=== PATIENT | male | born 1965 | race Hispanic/Latino ===

== ENCOUNTER 2018-06-24 20:01 | Emergency (ER) | payer OTHER ==
[2018-06-24] MEDS ORDERED: ACETAMINOPHEN 500 MG TAB ONE ×2 (21:14→21:57)
--- NOTE | 2018-06-24 21:26 | RAD REPORT ---
EXAM DESCRIPTION: CT - Head Brain Wo Cont - 06/24/2018 9:15 pm CLINICAL HISTORY: Headache COMPARISON: None. TECHNIQUE: Computed axial tomography of the head was obtained. IV contrast was not requested. All CT scans are performed using dose optimization technique as appropriate and may include automated exposure control or mA/KV adjustment according to patient size. FINDINGS: An intracranial bleed is not seen . The ventricles are normal in caliber. No extra-axial fluid collection is noted. Fluid within the sinuses/ mastoids is not seen. IMPRESSION: No acute intracranial abnormality is seen. If patient's symptoms persist MRI of the bra in would be recommended.
--- NOTE | 2018-06-24 21:51 | ER ---
Nurse's Notes [facility] Name: Meng Gutierrez Age: 52 yrs Sex: Male : 1965 Arrival Date: 06/24/2018 Time: 20:03 Bed 25 Private MD: Ron Hall R Diagnosis: Headache Presentation: 06/24 20:15 Presenting complaint: Patient states: He has had a throbbing headache for the past 2 aj1 weeks. He is taking Excedrin and ibuprofen for it but after a few hours his headache comes back. Denies photosensitivity, dizziness, nausea, vomiting, or syncope. He has not seen his PHCP regarding this complaint. Transition of care: patient was not received from another setting of care. Onset of symptoms was June 2018. Risk Assessment: Do you want to hurt yourself or someone else? Patient reports no desire to harm self or others. Initial Sepsis Screen: Does the patient meet any 2 criteria? No. Patient's initial sepsis screen is negative. Does the patient have a suspected source of infection? No. Patient's initial sepsis screen is negative. Care prior to arrival: None. 20:15 Method Of Arrival: Ambulatory aj 20:15 Acuity: SHO 3 aj1 Triage Assessment: 20:18 Headache History: The patient has had previous headaches and this one is similar to aj1 previous episodes. General: Appears in no apparent distress. uncomfortable, Behavior is calm, cooperative, appropriate for age. Pain: Complains of pain in occipital area Pain currently is 10 out of 10 on a pain scale. Quality of pain is described as throbbing, Pain began 2 weeks Also complains of no other associated symptoms. Neuro: Level of Consciousness is awake, alert, obeys commands, Oriented to person, place, time, situation, Moves all extremities. Full function Gait is steady, Speech is normal, Facial symmetry appears normal, Reports headache Denies weakness blurred vision dizziness, numbness photophobia. Cardiovascular: Patient's skin is warm and dry. Respiratory: Airway is patent Respiratory effort is even, unlabored, Respiratory pattern is regular, symmetrical. Historical: - Allergies: 20:18 No Known Allergies; aj1 - Home Meds: 20:18 losartan Oral [Active]; aj1 - PMHx: 20:18 Hypertension; aj1 - Immunization history:: Flu vaccine is up to date. - Social history:: Smoking status: Patient/guardian denies using tobacco. - Ebola Screening: : Patient denies travel to an Ebola-affected area in the 21 days before illness onset. Screenin:30 Abuse screen: Denies threats or abuse. Denies injuries from another. Nutritional kr2 screening: No deficits noted. Tuberculosis screening: No symptoms or risk factors identified. Fall Risk None identified. Assessment: 20:30 General: Appears in no apparent distress. comfortable, well groomed, Behavior is calm, kr2 cooperative, appropriate for age. Pain: Complains of pain in occipital area Pain currently is 3 out of 10 on a pain scale. Quality of pain is described as squeezing, throbbing, Is intermittent, Alleviated by medications, rest. Neuro: Level of Consciousness is awake, alert, obeys commands, Oriented to person, place, time, situation, Appropriate for age Molder Punch are equal bilaterally Moves all extremities. Gait is steady, Speech is normal, Facial symmetry appears normal, Pupils are PERRLA, Intact. Cardiovascular: Capillary refill < 3 seconds in bilateral fingers Patient's skin is warm and dry. Respiratory: Airway is patent Respiratory effort is even, unlabored, Respiratory pattern is regular, symmetrical. GI: Patient currently denies nausea, vomiting. EENT: Oral mucosa is moist. Derm: Skin is intact, is healthy with good turgor, Skin is pink, warm \T\ dry. Musculoskeletal: Circulation, motion, and sensation intact. 21:30 Reassessment: Patient appears in no apparent distress at this time. Patient and/or kr2 family updated on plan of care and expected duration. Pain level reassessed. Patient is alert, oriented x 3, equal unlabored respirations, skin warm/dry/pink. 22:15 Reassessment: Patient appears in no apparent distress at this time. Patient and/or kr2 family updated on plan of care and expected duration. Pain level reassessed. Patient is alert, oriented x 3, equal unlabored respirations, skin warm/dry/pink. Patient states feeling better. Vital Signs: 20:18 BP 106 / 82; Pulse 74; Resp 16; Temp 98.3; Pulse Ox 96% on R/A; Weight 79.38 kg (R); aj1 Height 5 ft. 8 in. (172.72 cm) (R); Pain 10/10; 21:30 BP 110 / 80; Pulse 70; Resp 15; Pulse Ox 99% on R/A; kr2 20:18 Body Mass Index 26.61 (79.38 kg, 172.72 cm) aj1 ED Course: 20:03 Patient arrived in ED. do 20:03 Ron Hall MD is Private Physician. do 20:17 Triage completed. aj1 20:18 Arm band placed on Patient placed in an exam room. aj1 20:22 Julian Brody PA is PHCP. cp 20:23 Lucas Roberson MD is Attending Physician. cp 20:30 Patient has correct armband on for positive identification. Bed in low position. Call kr2 light in reach. Pulse ox on. NIBP on. Door closed. Warm blanket given. Head of bed elevated. 20:43 Machelle Mendoza, RN is Primary Nurse. kr2 21:[address] nv 21:15 CT Head Brain wo Cont In Process Unspecified. EDMS 21:50 Jamin Amado MD is Referral Physician. cp 22:27 No provider procedures requiring assistance completed. Patient did not have IV access kr2 during this emergency room visit. Administered Medications: 21:30 Drug: Tylenol 1000 mg Route: PO; kr2 22:21 Follow up: Response: No adverse reaction kr2 Outcome: 21:50 Discharge ordered by MD. cp 22:28 Discharged to home ambulatory, with family. kr2 22:28 Condition: good 22:28 Discharge instructions given to patient, family, Instructed on discharge instructions, follow up and referral plans. medication usage, Demonstrated understanding of instructions, follow-up care, medications, Prescriptions given X 2. 22:28 Patient left the ED. kr2 Signatures: Dispatcher [employer] EDMS Demi Villegas, RN RN aj1 Julian Brody PA PA Yarelis Vilchis Nathan nv Machelle Mendoza RN RN kr2
--- NOTE | 2018-06-24 21:51 | EDPHYS ---
Physician Documentation [facility] Name: Meng Gutierrez Age: 52 yrs Sex: Male : 1965 Arrival Date: 06/24/2018 Time: 20:03 Bed 25 Private MD: Ron Hall R ED Physician Lucas Roberson HPI: 06/24 21:03 This 52 yrs old Male presents to ER via Ambulatory with complaints of Runny cp Nose, Headache. 21:03 The patient complains of pain to the occipital area. cp 21:03 The patient describes the headache as aching, waxing and waning. Onset: The cp symptoms/episode began/occurred 2 week(s) ago. 21:03 Associated signs and symptoms: Pertinent positives: nasal drainage, Pertinent cp negatives: altered mental status, fever, neck stiffness, paresthesias, sinus congestion, sinus tenderness, vision changes. 21:03 Patient reports similar headaches prior to being treated for hypertension. cp Historical: - Allergies: 20:18 No Known Allergies; aj1 - Home Meds: 20:18 losartan Oral [Active]; aj1 - PMHx: 20:18 Hypertension; aj1 - Immunization history:: Flu vaccine is up to date. - Social history:: Smoking status: Patient/guardian denies using tobacco. - Ebola Screening: : Patient denies travel to an Ebola-affected area in the 21 days before illness onset. ROS: 21:10 Constitutional: Negative for body aches, chills, fever, poor PO intake. cp 21:10 Eyes: Negative for injury, pain, redness, and discharge. cp 21:10 ENT: Positive for rhinorrhea, Negative for drainage from ear(s), ear pain, sore throat, difficulty swallowing, difficulty handling secretions. 21:10 Neck: Negative for pain with movement, pain at rest, stiffness, swollen nodes, tenderness. 21:10 Cardiovascular: Negative for chest pain, edema, palpitations. 21:10 Respiratory: Negative for cough, shortness of breath, wheezing. 21:10 Abdomen/GI: Negative for abdominal pain, nausea, vomiting, and diarrhea. 21:10 Back: Negative for pain at rest, pain with movement, radiated pain. 21:10 : Negative for urinary symptoms. 21:10 Skin: Negative for cellulitis, rash. 21:10 Neuro: Positive for headache, Negative for altered mental status, gait disturbance, numbness, syncope, near syncope, weakness. 21:10 All other systems are negative. Exam: 21:15 Constitutional: The patient appears in no acute distress, alert, awake, cp non-diaphoretic, non-toxic, well developed, well nourished. 21:15 Head/Face: Normocephalic, atraumatic. Eyes: Pupils equal round and reactive to light, cp extra-ocular motions intact. Lids and lashes normal. Conjunctiva and sclera are non-icteric and not injected. Cornea within normal limits. Periorbital areas with no swelling, redness, or edema. ENT: Nares patent. No nasal discharge, no septal abnormalities noted. Tympanic membranes are normal and external auditory canals are clear. Oropharynx with no redness, swelling, or masses, exudates, or evidence of obstruction, uvula midline. Mucous membranes moist. Neck: Trachea midline, no thyromegaly or masses palpated, and no cervical lymphadenopathy. Supple, full range of motion without nuchal rigidity, or vertebral point tenderness. No Meningismus. Chest/axilla: Normal chest wall appearance and motion. Nontender with no deformity. No lesions are appreciated. Cardiovascular: Regular rate and rhythm with a normal S1 and S2. No gallops, murmurs, or rubs. Normal PMI, no JVD. No pulse deficits. Respiratory: Lungs have equal breath sounds bilaterally, clear to auscultation and percussion. No rales, rhonchi or wheezes noted. No increased work of breathing, no retractions or nasal flaring. Abdomen/GI: Soft, non-tender, with normal bowel sounds. No distension or tympany. No guarding or rebound. No evidence of tenderness throughout. Skin: Warm, dry with normal turgor. Normal color with no rashes, no lesions, and no evidence of cellulitis. Neuro: Awake and alert, GCS 15, oriented to person, place, time, and situation. Cranial nerves II-XII grossly intact. Motor strength 5/5 in all extremities. Sensory grossly intact. Cerebellar exam normal. Normal gait. Vital Signs: 20:18 BP 106 / 82; Pulse 74; Resp 16; Temp 98.3; Pulse Ox 96% on R/A; Weight 79.38 kg (R); aj1 Height 5 ft. 8 in. (172.72 cm) (R); Pain 10/10; 21:30 BP 110 / 80; Pulse 70; Resp 15; Pulse Ox 99% on R/A; kr2 20:18 Body Mass Index 26.61 (79.38 kg, 172.72 cm) aj1 MDM: 20:23 Patient medically screened. cp 21:00 Differential diagnosis: cluster headache, meningoencephalitis, migraine, neoplasm, cp subarachnoid bleed, temporal arteritis, tension headache. 21:48 Data reviewed: vital signs, nurses notes, radiologic studies, CT scan, and as a result, cp I will discharge patient. 21:48 Counseling: I had a detailed discussion with the patient and/or guardian regarding: the cp historical points, exam findings, and any diagnostic results supporting the discharge/admit diagnosis, radiology results, the need for outpatient follow up, a neurologist, to return to the emergency department if symptoms worsen or persist or if there are any questions or concerns that arise at home. 06/24 21:02 Order name: CT Head Brain wo Cont; Complete Time: 21:28 cp 06/24 21:29 Interpretation: Report reviewed. cp Administered Medications: 21:30 Drug: Tylenol 1000 mg Route: PO; kr2 22:21 Follow up: Response: No adverse reaction kr2 Disposition: 06/25 01:19 Co-signature as Attending Physician, Lucas Roberson MD. rn Disposition: 06/24/18 21:50 Discharged to Home. Impression: Headache. - Condition is Stable. - Discharge Instructions: General Headache Without Cause. - Prescriptions for Imitrex 50 mg Oral Tablet - take 1 tablet by ORAL route one time - x 1 dose with fluids as early as possible after the onset of a migraine attack; if headache returns, the dose may be repeated after 2 hours, not to exceed a total daily dose of 4 tablets;. Naprosyn 500 mg Oral Tablet - take 1 tablet by ORAL route 2 times per day take with food; 30 tablet. - Medication Reconciliation Form, Thank You Letter, Antibiotic Education, Prescription Opioid Use form. - Follow up: Jamin Amado MD; When: 2 - 3 days; Reason: Recheck today's complaints. - Problem is new. - Symptoms have improved. Signatures: Dispatcher [facility]Ho[facility] Phys[facility] Medical CenterDemi Portillo RN RN aj1 Lucas Roberson MD MD rn Page, Corey, PA PA cp Reji, Machelle, RN RN kr2 Corrections: (The following items were deleted from the chart) 06/24 22:28 21:50 06/24/2018 21:50 Discharged to Home. Impression: Headache. Condition is Stable. kr2 Forms are Medication Reconciliation Form, Thank You Letter, Antibiotic Education, Prescription Opioid Use. Follow up: Jamin Amado; When: 2 - 3 days; Reason: Recheck today's complaints. Problem is new. Symptoms have improved. cp
[2018-06-24 22:52] VITALS: TEMP 98.3
[2018-06-24 22:53] VITALS: BP 110/80; O2SAT 99
== END 2018-06-24 22:28 | disposition home or self-care (01) ==
LOC: ER 20:01
DX: R51 Headache (principal); I10 Essential (primary) hypertension
CPT/HCPCS: 70450; 99284

== ENCOUNTER 2020-05-12 06:23 | Emergency (ER) | payer OTHER, SELFPAY ==
--- OUTSIDE RECORDS SUMMARY | 2020-05-12 06:25 | XMS REPORT | Continuity of Care Document ---
:1965 Author Organization [facility] t Address [address] [place] [address] Care Team Providers Name Role Phone Unavailable Unavailable Unavailable Problems Condition Condition Condition Status Onset Resolution Last Treating Co mments Source Name Details Category Date Date Treatment Clinician Date HTN, goal HTN, goal Problem Active [facility] 140[facility] 140/[facility] Calculus Calculus Problem [facility] kidney kidney [facility] Osteoarthr Osteoarthr Diagnosis Active [facility] it[facility] of itis of [facility] - lumbar lumbar [facility] spine, spine, l unspecifie unspecifie Ou tpati d spinal d spinal ent osteoarthr osteoarthr Cl inics itis itis complicati complicati on status on status Rotator Rotator Problem Active [facility] cuff cuff [facility] - arthropath arthropath Me moria y of left y of left l shoulder shoulder Outpat i ent Clinics Arm pain, Arm pain, Diagnosis Active [facility] left left [facility] Allergies, Adverse Reactions, Alerts This patient has no known allergies or adverse reactions. Medications Ordered Filled Start Stop Current Ordering Indication Dosage Frequency Signature Comments Components Source Medication Medication Date Date Medication? Clinician (SIG) Name Name Losartan Losartan Yes Stephanie [address] Potassium Potassium [facility] Procedures This patient has no known procedures. Encounters Start End Encounter Admission Attending Care Care Encounter Source Date/Time Date/Time Type Type Clinicians Facility Department ID 2020-04-15 2020-04-15 Outpatient Jeanna Cedeno [id number] [facility] 14:30:00 14:30:00 t H3 [facility] [place] [facility] 2020-03-06 2020-03-06 Outpatient Jeanna Meekst [id number] [facility] 09:30:00 09:30:00 t Bday [facility] Medicine Outpati ent Clinics 2019-11-23 2019-11-23 [facility] [id number] [facility] 08:00:00 08:00:00 t Bday [facility] Outpati ent Clinics 2019-07-16 2019-07-16 [facility] [id number] [facility] 15:45:00 15:45:00 t Bday [facility] Outpat[facility] ent Clinics 2019-04-12 2019-04-12 [facility] [id number] [facility] 09:45:00 09:45:00 t Bday [facility] Outpati ent Clinics 2018-11-30 2018-11-30 [facility] [id number] [facility] 08:[facility] 08:[facility]:[address] [facility] Outpati ent Clinics Results This patient has no known results.
--- OUTSIDE RECORDS SUMMARY | 2020-05-12 06:26 | XMS REPORT ---
:1965 Author Organization [employer] Care Team Providers Name Role Phone Stephanie Gomez Provider Role Unavailable Allergies, Adverse Reactions, Alerts Substance Reaction Event Type N.K.D.A. Info Not Available Non Drug Allergy Problems Problem Type Condition Code Onset Dates Condition Statu s Assessment Rotator cuff arthropathy of left M12.812 Active shoulder Assessment Calculus of right kidney N20.0 Act kathleen Assessment Arm pain, left M79.602 Active Problem Calculus of right kidney N20.0 Act kathleen Problem Osteoarthritis of lumbar spine, M47.816 Active unspecified spinal osteoarthritis complication status Problem Rotator cuff arthropathy of left M12.812 Active shoulder Assessment HTN, goal below 140/90 I10 Activ e Assessment Osteoarthritis of lumbar spine, M47.816 Active unspecified spinal osteoarthritis complication status Problem HTN, goal below 140/90 I10 Activ e Medications Medication Code Code Instructions Start End Date Status Dosage System Date Losartan FORMERLY NAMED [facility] [id number] 100 MG Orally Active 1 tab let Potassium Once a day Results No Known Results Summary Purpose [employer] Submission
[2020-05-12] MEDS ORDERED: KETOROLAC 30 MG/ML INJ ONE (07:07)
--- NOTE | 2020-05-12 07:59 | ER ---
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 Coronavirus screen: Client denies travel out of the [place] in the last 14 days. At this time, the client does not indicate any symptoms associated with coronavirus-19. Initial Sepsis Screen: Does the patient meet any 2 criteria? No. Patient's initial sepsis screen is negative. Does the patient have a suspected source of infection? No. Patient's initial sepsis screen is negative. Risk Assessment: Do you want to hurt yourself or someone else? Patient reports no desire to harm self or others. Onset of symptoms was May 12, 2020. 06:41 Method Of Arrival: Ambulatory lp1 06:41 Acuity: SHO 4 lp1 06:43 Ebola Screen: No symptoms or risks identified at this time. lp1 Triage Assessment: 08:27 General: Appears in no apparent distress. Behavior is calm, cooperative, appropriate jr10 for age. Historical: - Allergies: 06:43 No Known Allergies; lp1 - Home Meds: 06:43 losartan Oral [Active]; lp1 - PMHx: 06:43 Hypertension; lp1 - PSHx: 06:43 None; lp1 - Immunization history:: Adult Immunizations up to date. - Social history:: Smoking status: Patient denies any tobacco usage or history of. Screenin:43 Abuse screen: Denies threats or abuse. Denies injuries from another. Nutritional lp1 screening: No deficits noted. Tuberculosis screening: No symptoms or risk factors identified. Fall Risk None identified. Assessment: 08:25 Pain: Complains of pain in anterior aspect of left shoulder and posterior aspect of jr10 left shoulder Quality of pain is described as aching, Pain began 3 months ago Is intermittent. Neuro: No deficits noted. Cardiovascular: Denies chest pain. Respiratory: No deficits noted. Airway is patent Respiratory effort is even, unlabored, Respiratory pattern is regular, symmetrical. Derm: No deficits noted. No signs and/or symptoms reported regarding the dermatologic system. Musculoskeletal: Circulation, motion, and sensation intact. Capillary refill < 3 seconds, Range of motion: limited in left shoulder Reports pain in left shoulder x3 months. Vital Signs: 06:43 BP 122 / 83; Pulse 73; Resp 18; Temp 97.9(O); Pulse Ox 97% on R/A; Weight 79.38 kg (R); lp1 Height 5 ft. 8 in. (172.72 cm); Pain 01; 08:22 BP 104 / 81; Pulse 73; Resp 18; Pulse Ox 96% on R/A; jr10 06:43 Body Mass Index 26.61 (79.38 kg, 172.72 cm) lp1 ED Course: 06:29 Patient arrived in ED. am2 06:30 Camden Barajas DO is Private Physician. am2 06:43 Triage completed. lp1 06:43 Arm band placed on right wrist. lp1 06:49 Sid[facility] Rizvi FNP-C [facility]. snw 06:49 Isra Rodriguez MD is Attending Physician. snw 06:54 Gin Rosenthal, VICENTE is Primary Nurse. mt2 06:58 Patient has correct armband on for positive identification. Bed in low position. Call mh5 light in reach. Side rails up X 1. Pulse ox on. NIBP on. 07:11 EKG done, by ED staff, reviewed by Sidra FUNES. sv 07:15 Awaiting for x-ray. sv 07:15 Primary Nurse role handed off by Gin Rosenthal, VICENTE sv 07:15 Rashmi Tan, VICENTE is Primary Nurse. sv 07:45 Shoulder Left (2 View) XRAY In Process Unspecified. EDMS 08:21 Sling applied to left arm. jr10 08:27 No provider procedures requiring assistance completed. Patient did not have IV access jr10 during this emergency room visit. Administered Medications: 06:59 Drug: TORadol 60 mg Route: IM; Site: right deltoid; mt2 08:09 Follow up: Response: No adverse reaction; Pain is decreased jr10 Outcome: 07:59 Discharge ordered by . snw 08:27 Discharged to home ambulatory. jr10 08:27 Condition: good 08:27 Discharge instructions given to patient, Instructed on discharge instructions, follow up and referral plans. Demonstrated understanding of instructions, follow-up care, medications, Prescriptions given X 2. 08:27 Patient left the ED. jr10 Signatures: Dispatcher [employer] EDMS Rashmi Tan, VICENTE RN sv Sidra Rizvi, CIVIL PREPAREDNESS COORDINATOR-C CIVIL PREPAREDNESS COORDINATOR-Csnw Earline Aranda RN RN [address] [facility] Nadia Morales Marlene, RN RN mt2 Lizeth Dent RN RN jr10
--- NOTE | 2020-05-12 07:59 | EDPHYS ---
Physician Documentation [facility] Name: Meng Gutierrez Age: 54 yrs Sex: Male : 1965 Arrival Date: 05/12/2020 Time: 06:29 Bed 8 Private MD: Himanshu Barajash ED Physician Isra Rodriguez HPI: 05/12 07:03 This 54 yrs old Male presents to ER via Ambulatory with complaints of Shoulder snw Pain. 07:03 The patient or guardian complains of decreased range of motion, pain, that is acute. snw left shoulder and left trapezius. Onset: The symptoms/episode began/occurred gradually, 3 month(s) ago, and became worse 1 week(s) ago, post doing some exercise. Modifying factors: The symptoms are aggravated by lifting weight, movement, rotation of arm. Associated signs and symptoms: Pertinent negatives: pt unable to sleep secondary to throbbing pain to left shoulder, denies chest pain. Severity of symptoms: At their worst the symptoms were moderate, severe. It is unknown whether or not the patient has had similar symptoms in the past. The patient has not recently seen a physician. Historical: - Allergies: 06:43 No Known Allergies; lp1 - Home Meds: 06:43 losartan Oral [Active]; lp1 - PMHx: 06:43 Hypertension; lp1 - PSHx: 06:43 None; lp1 - Immunization history:: Adult Immunizations up to date. - Social history:: Smoking status: Patient denies any tobacco usage or history of. ROS: 07:02 Constitutional: Negative for fever, chills, and weight loss, Eyes: Negative for injury, snw pain, redness, and discharge, ENT: Negative for injury, pain, and discharge, Neck: Negative for injury, pain, and swelling, Cardiovascular: Negative for chest pain, palpitations, and edema, Respiratory: Negative for shortness of breath, cough, wheezing, and pleuritic chest pain, Abdomen/GI: Negative for abdominal pain, nausea, vomiting, diarrhea, and constipation, Back: Negative for injury and pain, : Negative for injury, bleeding, discharge, and swelling, Skin: Negative for injury, rash, and discoloration, Neuro: Negative for headache, weakness, numbness, tingling, and seizure, Psych: Negative for depression, anxiety, suicide ideation, homicidal ideation, and hallucinations. 07:02 MS/extremity: Positive for decreased range of motion, pain, tenderness, of the anterior aspect of left shoulder. Exam: 07:01 Constitutional: This is a well developed, well nourished patient who is awake, alert, snw and in no acute distress. Head/Face: Normocephalic, atraumatic. Eyes: Pupils equal round and reactive to light, extra-ocular motions intact. Lids and lashes normal. Conjunctiva and sclera are non-icteric and not injected. Cornea within normal limits. Periorbital areas with no swelling, redness, or edema. ENT: Nares patent. No nasal discharge, no septal abnormalities noted. Tympanic membranes are normal and external auditory canals are clear. Oropharynx with no redness, swelling, or masses, exudates, or evidence of obstruction, uvula midline. Mucous membranes moist. Neck: Trachea midline, no thyromegaly or masses palpated, and no cervical lymphadenopathy. Supple, full range of motion without nuchal rigidity, or vertebral point tenderness. No Meningismus. Chest/axilla: Normal chest wall appearance and motion. Nontender with no deformity. No lesions are appreciated. Cardiovascular: Regular rate and rhythm with a normal S1 and S2. No gallops, murmurs, or rubs. Normal PMI, no JVD. No pulse deficits. Respiratory: Lungs have equal breath sounds bilaterally, clear to auscultation and percussion. No rales, rhonchi or wheezes noted. No increased work of breathing, no retractions or nasal flaring. Abdomen/GI: Soft, non-tender, with normal bowel sounds. No distension or tympany. No guarding or rebound. No evidence of tenderness throughout. Back: No spinal tenderness. No costovertebral tenderness. Full range of motion. Skin: Warm, dry with normal turgor. Normal color with no rashes, no lesions, and no evidence of cellulitis. Neuro: Awake and alert, GCS 15, oriented to person, place, time, and situation. Cranial nerves II-XII grossly intact. Motor strength 5/5 in all extremities. Sensory grossly intact. Cerebellar exam normal. Normal gait. Psych: Awake, alert, with orientation to person, place and time. Behavior, mood, and affect are within normal limits. 07:01 Musculoskeletal/extremity: Extremities: grossly normal except: noted in the anterior aspect of left shoulder: decreased ROM, painful arc, ROM: limited active range of motion due to pain, in the anterior aspect of left shoulder, Circulation is intact in all extremities. Sensation intact. Vital Signs: 06:43 BP 122 / 83; Pulse 73; Resp 18; Temp 97.9(O); Pulse Ox 97% on R/A; Weight 79.38 kg (R); lp1 Height 5 ft. 8 in. (172.72 cm); Pain 01/10; 08:22 BP 104 / 81; Pulse 73; Resp 18; Pulse Ox 96% on R/A; jr10 06:43 Body Mass Index 26.61 (79.38 kg, 172.72 cm) lp1 MDM: 06:49 Patient medically screened. snw 07:40 Data reviewed: vital signs, nurses notes. Data interpreted: Pulse oximetry: on room air snw is 97 %. Interpretation: normal. Counseling: I had a detailed discussion with the patient and/or guardian regarding: the historical points, exam findings, and any diagnostic results supporting the discharge/admit diagnosis. Awaiting: X-ray results, to be taken. 05/12 06:52 Order name: Shoulder Left (2 View) XRAY snw 05/12 07:05 Order name: EKG; Complete Time: 07:05 snw 05/12 07:05 Order name: EKG - Nurse/Tech; Complete Time: 07:15 snw 05/12 07:59 Order name: Sling; Complete Time: 08:25 snw EC:00 Rate is 69 beats/min. Rhythm is regular. QRS [place] is Normal. [place] interval is normal. QRS snw interval is normal. QT interval is normal. No Q waves. Clinical impression: NSR w/ Non-specific ST/T Changes. Administered Medications: 06:59 Drug: TORadol 60 mg Route: IM; Site: right deltoid; mt2 08:09 Follow up: Response: No adverse reaction; Pain is decreased jr10 Disposition: 17:20 Co-signature as Attending Physician, Isra Rodriguez MD. ma2 Disposition: 05/12/20 07:59 Discharged to Home. Impression: Pain in left shoulder. - Condition is Stable. - Discharge Instructions: Joint Pain, Musculoskeletal Pain, Shoulder Pain, Shoulder Range of Motion Exercises, Cryotherapy, Heat Therapy, How to Use a Sling. - Prescriptions for Prednisone 20 mg Oral Tablet - take 2 tablet by ORAL route once daily for 5 days; 10 tablet. orphenadrine citrate 100 mg Oral Tablet Sustained Release - take 1 tablet by ORAL route 2 times per day As needed; 20 tablet. - Medication Reconciliation Form, Thank You Letter, Antibiotic Education, Prescription Opioid Use form. - Follow up: Emergency Department; When: As needed; Reason: Worsening of condition. Follow up: Private Physician; When: 1 week; Reason: Recheck today's complaints, Continuance of care, Re-evaluation by your physician. Signatures: Dispatcher [employer] EDMS Sidra Rizvi, INSOLE LIP TURNER-C INSOLE LIP TURNER-Csnw Earline Aranda, RN RN lp1 Isra Rodriguez MD MD ma2 Gin Rosenthal RN RN mt2 Lizeth Dent RN RN jr10 Corrections: (The following items were deleted from the chart) 08:27 07:59 05/12/2020 07:59 Discharged to Home. Impression: Pain in left shoulder. Condition jr10 is Stable. Discharge Instructions: Joint Pain, Musculoskeletal Pain, Shoulder Pain, Shoulder Range of Motion Exercises, Cryotherapy, Heat Therapy. Prescriptions for Prednisone 20 mg Oral Tablet - take 2 tablet by ORAL route once daily for 5 days; 10 tablet, orphenadrine citrate 100 mg Oral Tablet Sustained Release - take 1 tablet by ORAL route 2 times per day As needed; 20 tablet. and Forms are Medication Reconciliation Form, Thank You Letter, Antibiotic Education, Prescription Opioid Use. Follow up: Emergency Department; When: As needed; Reason: Worsening of condition. Follow up: Private Physician; When: 1 week; Reason: Recheck today's complaints, Continuance of care, Re-evaluation by your physician. snw
--- NOTE | 2020-05-12 08:49 | RAD REPORT ---
EXAM DESCRIPTION: RAD - Shoulder Left 2 View - 05/12/2020 7:46 am CLINICAL HISTORY: PAIN COMPARISON: No comparisons TECHNIQUE: Internal and external rotation views of the left shoulder were obtained. FINDINGS: There is no fracture or dislocation. Mild AC joint degenerative changes are present. Degen erative change seen along the undersurface of the acromion. Acromial humeral joint space is narrowed but no soft tissue calcifications are seen. No acute or suspicious findings. IMPRESSION: Mild shoulder joint degenerative change present without acute finding. Concerns for rotator cuff tear, other internal derangement or occult bone process can be addressed wi MR imaging.
[2020-05-12 22:30] VITALS: TEMP 97.9
[2020-05-12 22:31] VITALS: BP 104/81; O2SAT 96
--- NOTE | 2020-05-13 05:21 | EKG ---
Test Date: 2020-05-12 Test Time: 07:11:53 Digital X Ray Service Engineer: FRANCHESCA MEASUREMENT RESULTS: Intervals: Rate: 69 WA: 162 QRSD: 102 QT: 376 QTc: 402 [place]: P: 58 WA: 162 QRS: 42 T: 65 INTERPRETIVE STATEMENTS: Normal sinus rhythm Normal ECG No previous ECG available for comparison Electronically Signed On 05-13-20 05:20:26 CDT by Raphael Calvin
== END 2020-05-12 08:27 | disposition home or self-care (01) ==
LOC: ER 06:23
DX: M25.512 Pain in left shoulder (principal); I10 Essential (primary) hypertension
CPT/HCPCS: 93005; 96372; 99284

== ENCOUNTER 2024-10-06 21:25 | Emergency (ER) | payer OTHER, SELFPAY ==
--- OUTSIDE RECORDS SUMMARY | 2024-10-06 21:28 | XMS REPORT | Continuity of Care Document ---
Author Name Unknown Address [address] [facility] [address] [place] [address] [facility] thconnect Address [address] 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 Machine Operator Name Role Phone Camden Barajas Attending Clinician Unavailable Payers Payer Name Policy Type Policy Number Effective Date Expirati on Date Source [employer] [id number] 2023 00:00:00 [facility] Problems Condition Name Condition Details Condition Category Status Onset Date Resolution Date Last Treatment Date Treating Clinician Comments Source [id number] Non-season al allergic rhinitis, unspecifie d trigger Problem [facility] [id number] Mixed hyperlipid emia Problem [facility] Pure hyperglyce ridemia Elevated triglyceri wojciech Problem [facility] Pure hyperchole sterolemia Elevated LDL cholestero l level Problem [facility] [id number] HTN, goal below 140/90 Problem [facility] [id number] Osteoarthr itis of lumbar spine, unspecifie d spinal osteoarthr itis complicati on status Problem [facility] [id number] Calculus of right kidney Problem [facility] Rotator cuff arthropath y of left shoulder Rotator cuff arthropath y of left shoulder Problem [facility] [id number] Other chronic pain Problem [facility] [id number] Pain, joint, shoulder, right Problem [facility] [id number] Pain, joint, shoulder, left Problem [facility] Social History Social Habit Start Date Stop Date Quantity Comments Source History of Tobacco Use [facility] Sex Assigned At [facility] Smoking Status Start Date Stop Date Source Never Smoker [facility] Medications Ordered Medication Name Filled Medication Name Start Date Stop Date Current Medication? Ordering Clinician Indication Dosage Frequency Signature (SIG) Comments Components Source ProAir HFA 108 (90 Base) MCG/ACT ProAir HFA 108 (90 Base) MCG/ACT 10-28 00:00: 00 No 2{puffs _as_nee ded} ProAir HFA 108 (90 Base) MCG/ACT Losartan Potassium 100 MG Losartan Potassium 100 MG No 1{table t} QD Losartan Potassium 100 MG Immunizations Ordered Immunization Name Filled Immunization Name Date Status Comments Source Fluarix Fluarix Unknown Completed [facility] Fluarix (IIV4) - SDS - 0.5mL Fluarix (IIV4) - SDS - 0.5mL Unknown Completed [facility] Fluarix (IIV4) - SDS - 0.5mL Fluarix (IIV4) - SDS - 0.5mL Unknown Completed [facility] Fluarix (IIV4) - SDS - 0.5mL Fluarix (IIV4) - SDS - 0.5mL Unknown Completed [facility] Fluarix (IIV4) - SDS - 0.5mL Fluarix (IIV4) - SDS - 0.5mL Unknown Completed [facility] Vital Signs Vital Name Observation Time Observation Value Comments S na height 2023-10-28 11:00:00 68 [in_i] Commo n [facility] weight 2023-10-28 11:00:00 180 [lb_av] Comm on [facility] temperature 2023-10-28 11:00:00 97.7 [degF] Com mon [facility] bmi 2023-10-28 11:00:00 27.37 kg/m2 Comm on [facility] oximetry 2023-10-28 11:00:00 94 % Commo n [facility] blood pressure systolic 2023-10-28 11:00:00 128 mm[Hg[facility] diastolic 2023-10-28 11:00:00 70 mm[Hg] [facility] height 2023-10-28 11:00:00 68 [in_i] Commo n [facility] weight 2023-10-28 11:00:00 180 [lb_av] Comm on [facility] temperature 2023-10-28 11:00:00 97.7 [degF] Com [facility] bmi 2023-10-28 11:00:00 27.37 kg/m2 Comm on [facility] oximetry 2023-10-28 11:00:00 94 % Commo n [facility] blood pressure systolic 2023-10-28 11:00:00 128 mm[Hg] [facility] blood pressure diastolic 2023-10-28 11:00:00 70 mm[Hg] [facility] height 2023-06-17 10:30:00 68 [in_i] Commo n [facility] weight 2023-06-17 10:30:00 176.0 [lb_av] Co mmon [facility] temperature 2023-06-17 10:30:00 98.0 [degF] Com [facility] bmi 2023-06-17 10:30:00 26.76 kg/m2 Comm on [facility] oximetry 2023-06-17 10:30:00 97 % Commo n [facility] respiratory rate 2023-06-17 10:30:00 18 /min Common [facility] blood pressure systolic 2023-06-17 10:30:00 132 mm[Hg] [facility] blood pressure diastolic 2023-06-17 10:30:00 70 mm[Hg] [facility] height 2022-07-30 08:00:00 68 [in_i] Commo n [facility] weight 2022-07-30 08:00:00 170 [lb_av] Comm on [facility] temperature 2022-07-30 08:00:00 98 [degF] Comm on [facility] bmi 2022-07-30 08:00:00 25.85 kg/m2 Comm on [facility] blood pressure systolic 2022-07-30 08:00:00 121 mm[Hg] [facility] blood pressure diastolic 2022-07-30 08:00:00 66 mm[Hg] [facility] height 2022-03-10 08:30:00 68 [in_i] Commo n [facility] weight 2022-03-10 08:30:00 173 [lb_av] Comm on [facility] temperature 2022-03-10 08:30:00 97.7 [degF] Com [facility] bmi 2022-03-10 08:30:00 26.3 kg/m2 Commo n [facility] blood pressure systolic 2022-03-10 08:30:00 110 mm[Hg] [facility] blood pressure diastolic 2022-03-10 08:30:00 66 mm[Hg] [facility] height 2022-02-08 08:00:00 68 [in_i] Commo n [facility] weight 2022-02-08 08:00:00 174.0 [lb_av] Co mmon [facility] temperature 2022-02-08 08:00:00 97.3 [degF] Com [facility] bmi 2022-02-08 08:00:00 26.45 kg/m2 Comm on [facility] oximetry 2022-02-08 08:00:00 96 % Commo n [facility] respiratory rate 2022-02-08 08:00:00 16 /min [facility] blood pressure systolic 2022-02-08 08:00:00 109 mm[Hg] [facility] blood pressure diastolic 2022-02-08 08:00:00 72 mm[Hg] [facility] height 2021-07-03 11:40:00 68 [in_i] Commo n [facility] weight 2021-07-03 11:40:00 188 [lb_av] Comm on [facility] temperature 2021-07-03 11:40:00 98 [degF] Comm on [facility] bmi 2021-07-03 11:40:00 28.58 kg/m2 Comm on [facility] Encounters Start Date/Time End Date/Time Encounter Type Admission Type Attending [facility] Care Department Encounter ID Source 2024-05-18 13:33:00 Outpatient Barajas, [place] [facility] [id number] [facility] 2024-02-29 09:18:00 Outpatient Barajas, [place] [facility] [id number] [facility] 2023-10-28 09:34:00 Outpatient Barajas, [place] [facility] [id number] [facility] 2023-10-25 13:26:00 Outpatient Barajas, [place] [facility] [id number] [facility] 2023-06-15 13:29:00 Outpatient Barajas, [place] [facility] [id number] [facility] 2022-07-19 08:29:01 Outpatient Barajas, [place] [facility] [id number] [facility] 2022-03-10 09:51:00 Outpatient Barajas, [place] [facility] [id number] [facility] 2022-02-10 14:45:00 Outpatient Barajas, [place] [facility] [id number] [facility] 2022-01-25 11:40:07 Outpatient Barajas, [place] [facility] [id number] [facility] 2021-12-28 10:49:01 Outpatient Barajas, [place] [facility] [id number] [facility] 2021-09-30 14:06:29 Outpatient Barajas, [place] [facility] [id number] [facility] 2021-09-30 13:08:44 Outpatient Barajas, [place] [facility] [id number] [facility] 2021-09-30 12:40:15 Outpatient Barajas, [place] [facility] [id number] [facility] 2021-09-30 11:36:49 Outpatient Barajas, [place] [facility] [id number] [facility] 2021-09-30 11:14:51 Outpatient Barajas, [place] [facility] [id number] [facility] 2024-08-27 00:00:00 2024-08-27 00:00:00 (TEL) [facility] [id number] [facility] 2024-04-02 00:00:00 2024-04-02 00:00:00 (TEL) [facility] [id number] [facility] 2024-03-02 00:00:00 2024-03-02 00:00:00 (TEL) [facility] [id number] [facility] 2023-10-28 00:00:00 2023-10-28 00:00:00 OFFICE VISIT ESTAB PT LEVEL 4 [facility] [id number] [facility] 2023-06-17 00:00:00 2023-06-17 00:00:00 PREV VISIT EST AGE 40-64 [facility] [id number] [facility] 2023-05-16 00:00:00 2023-05-16 00:00:00 (TEL) [facility] [id number] [facility] 2023-02-11 00:00:00 2023-02-11 00:00:00 (TEL) [facility] [id number] [facility] 2022-07-30 00:00:00 2022-07-30 00:00:00 OFFICE VISIT EST PT LEVEL 3 [facility] [id number] [facility] 2022-07-19 00:00:00 2022-07-19 00:00:00 (TEL) [facility] [id number] [facility] 2022-03-12 00:00:00 2022-03-12 00:00:00 (TEL) [facility] [id number] [facility] 2022-03-10 00:00:00 2022-03-10 00:00:00 OFFICE VISIT NEW PT LEVEL 3 [facility] [id number] [facility] 2022-02-10 00:00:00 2022-02-10 00:00:00 (TEL) [facility] [id number] [facility] 2022-02-08 00:00:00 2022-02-08 00:00:00 OFFICE VISIT EST PT LEVEL 3 [facility] [id number] [facility] 2022-01-25 00:00:00 2022-01-25 00:00:00 (TEL) [facility] [id number] [facility] 2021-12-28 00:00:00 2021-12-28 00:00:00 (TEL) [facility] [id number] [facility] 2021-07-03 00:00:00 2021-07-03 00:00:00 (TEL) [facility] [id number] [facility] 2021-07-03 00:00:00 2021-07-03 00:00:00 OFFICE VISIT EST PT LEVEL 3 [facility] [id number] [facility] 2020-12-31 00:00:00 2020-12-31 00:00:00 Outpatient [facility] [id number] [facility] 2020-11-21 00:00:00 2020-11-21 00:00:00 Outpatient [facility] [id number] [facility] 2020-11-17 00:00:00 2020-11-17 00:00:00 Outpatient [facility] [id number] [facility] 2020-04-15 14:30:00 2020-04-15 14:30:00 [facility] [id number] [facility] 2020-03-06 09:30:00 2020-03-06 09:30:00 [facility] [id number] [facility] 2019-11-23 08:00:00 2019-11-23 08:00:00 [facility] [id number] [facility] 2019-07-16 15:45:00 2019-07-16 15:45:00 [facility] [id number] [facility] 2019-04-12 09:45:00 2019-04-12 09:45:00 [facility] [id number] [facility] 2018-11-30 08:00:00 2018-11-30 08:00:[address] [facility] [id number] [facility]
--- NOTE | 2024-10-06 22:23 | RAD REPORT ---
EXAMINATION: TWO VIEW CHEST XR CLINICAL INDICATION: Male, 58 years old. [facility] MAIN COUGH Bed: TECHNIQUE: 2 view radiographs of the chest were performed. COMPARISON: 10/29/2023 FINDINGS: The lungs are well inflated and clear. No pneumothorax or sizable effusion. The heart is normal in si ze. Mediastinal contours are unremarkable. IMPRESSION: No acute or significant abnormalities.
[2024-10-06 22:43] LABS: SARS-CoV-2 Antigen CONTROL BLUE LINE VIS/BG OK; SARS-CoV-2 Antigen Rapid Res Negative (Negative)
--- NOTE | 2024-10-06 22:44 | EDPHYS ---
Physician Documentation [facility] Name: Meng Gutierrez Age: 58 yrs Sex: Male : 1965 Arrival Date: 10/06/2024 Time: 21:25 Bed 6 Private MD: ED Physician Kris Abrams HPI: 10/06 23:27 This 58 yrs old Male presents to ER via Ambulatory with complaints of Flu dr5 Symptoms. 23:27 Onset: The symptoms/episode began/occurred 1 day(s) ago. Patient is a 58-year-old male dr5 with history of hypertension coming in with sore throat and subjective fevers at home for the past day. Patient denies anyone sick around him, but does have 3 small children at home. Patient denies chest pain, shortness of breath, nausea, vomiting, or diarrhea.. Historical: - Allergies: 21:32 No Known Allergies; ha1 - Home Meds: 21:32 losartan 100 mg Oral tablet 1 tab daily [Active]; ha1 - PMHx: 21:32 Hypertension; ha1 - Immunization history:: Adult Immunizations up to date. - Infectious Disease History:: Denies. - Social history:: Smoking status: Patient reports the use of cigarette tobacco products, denies chronic smoking, but will smoke occasionally. ROS: 23:27 Constitutional: as per hpi Eyes: Negative for injury, pain, redness, and discharge, dr5 Neck: Negative for injury, pain, and swelling, Cardiovascular: Negative for chest pain, palpitations, and edema, Respiratory: Negative for shortness of breath, cough, wheezing, and pleuritic chest pain, Abdomen/GI: Negative for abdominal pain, nausea, vomiting, diarrhea, and constipation, Back: Negative for injury and pain, MS/Extremity: Negative for injury and deformity, Skin: Negative for injury, rash, and discoloration, Neuro: Negative for headache, weakness, numbness, tingling, and seizure, Psych: Negative for depression, anxiety, suicide ideation, homicidal ideation, and hallucinations, 23:27 ENT: Positive for Exam: 23:27 Constitutional: This is a well developed, well nourished patient who is awake, alert, dr5 and in no acute distress. Head/Face: Normocephalic, atraumatic. Eyes: Pupils equal round and reactive to light, extra-ocular motions intact. Lids and lashes normal. Conjunctiva and sclera are non-icteric and not injected. Cornea within normal limits. Periorbital areas with no swelling, redness, or edema. Chest/axilla: Normal chest wall appearance and motion. Nontender with no deformity. No lesions are appreciated. Cardiovascular: Regular rate and rhythm with a normal S1 and S2. Normal PMI, no JVD. No pulse deficits. Respiratory: Lungs have equal breath sounds bilaterally, clear to auscultation. No rales, rhonchi or wheezes noted. No increased work of breathing, no retractions or nasal flaring. Back: No spinal tenderness. No costovertebral tenderness. Full range of motion. Skin: Warm, dry with normal turgor. Normal color with no rashes, no lesions, and no evidence of cellulitis. Neuro: Awake and alert, GCS 15, oriented to person, place, time, and situation. Cranial nerves II-XII grossly intact. Motor strength 5/5 in all extremities. Sensory grossly intact. Cerebellar exam normal. Normal gait. Psych: Awake, alert, with orientation to person, place and time. Behavior, mood, and affect are within normal limits. 23:27 ENT: External ear(s): are unremarkable, Ear canal(s): are normal, TM's: are normal, Nose: is normal, Mouth: Lips: normal, Oral mucosa: normal, Posterior pharynx: Airway: normal, Tonsils: bilaterally enlarged, with exudate, Uvula: normal, midline, Vital Signs: 21:32 BP 137 / 80; Pulse 76; Resp 18 S; Temp 98.2(O); Pulse Ox 97% on R/A; Weight 77.11 kg; ha1 Height 5 ft. 8 in. ; 22:57 BP 126 / 83; Pulse 79; Resp 16; Temp 98.4; Pulse Ox 98% on R/A; dd2 21:32 Body Mass Index 25.85 (77.11 kg, 172.72 cm) ha1 Zulma Coma Score: 22:14 Eye Response: spontaneous(4). Motor Response: obeys commands(6). Verbal Response: dd2 oriented(5). Total: 15. MDM: 21:36 Medical Screening Exam initiated dr5 23:27 Differential diagnosis: viral Infection, bacterial infection, URI, COVID, Flu, Strep. dr5 Data reviewed: vital signs, nurses notes. I considered the following discharge prescriptions or medication management in the emergency department Medications were administered in the Emergency Department. See MAR. Care significantly affected by the following chronic conditions: Hypertension. Care significantly affected by the following Social Determinants of Health: Poor access to healthcare and/or lack of insurance, Poor access to transportation, Problems related to employment. Counseling: I had a detailed discussion with the patient and/or guardian regarding the historical points, exam findings, and any diagnostic results supporting the discharge/admit diagnosis, the presence of at least one elevated blood pressure reading (>120/80) during this emergency department visit, lab results, the need for outpatient follow up, for definitive care, an ENT specialist, a family practitioner, to return to the emergency department if symptoms worsen or persist or if there are any questions or concerns that arise at home. ED course: Patient given first dose of amoxicillin in ER due to pharmacies around area close. Prescription for steroids up with inflammation as well as amoxicillin given for strep. Recommended patient follow-up with primary care doctor as needed. Increase hydration. Alternate Tylenol and Motrin as needed for fever and pain.. 10/06 21:29 Order name: SARS RAPID; Complete Time: 22:44 dr5 10/06 21:29 Order name: Influenza Screen (a \T\ B); Complete Time: 22:43 dr5 10/06 21:39 Order name: Strep; Complete Time: 22:43 vk 10/06 21:29 Order name: Chest Pa And Lat (2 Views) XRAY; Complete Time: 22:36 dr5 Administered Medications: 22:54 Drug: Amoxicillin PO 500 mg PO once Route: PO; dd2 23:00 Follow up: Response: Medication administered at discharge. dd2 Disposition: 10/07 02:36 Co-signature as Attending Physician, Kris Abrams MD I agree with the assessment sp4 and plan of care. I reviewed the patient's care provided by the Advanced Practice Provider and agree with the diagnosis and treatment plan. Disposition Summary: 10/06/24 22:44 Discharge Ordered Notes: Location: Home dr5 Condition: Stable dr5 Diagnosis - Streptococcal tonsillitis dr5 Followup: dr5 - With: Emergency Department - When: As needed - Reason: Worsening of condition Followup: dr5 - With: Private Physician - When: 1 - 2 days - Reason: Recheck today's complaints, Continuance of care, Re-evaluation by your physician Discharge Instructions: - Discharge Summary Sheet dr5 - Strep Throat, Adult dr5 Forms: - Work release form dr5 - Medication Reconciliation Form dr5 - Antibiotic Education dr5 - Patient Portal Instructions dr5 - Leadership Thank You Letter dr5 Prescriptions: - Amoxicillin 500 mg Oral capsule - take 1 capsule ORAL route 2 times per day for 10 days; 20 tablet; Refills: 0, dr5 Product Selection Permitted - Medrol (Bi) 4 mg Oral Tablets, Dose Pack - take 1 tablet ORAL route as directed - follow package instructions; 1 packet; dr5 Refills: 0, Product Selection Permitted Signatures: Dispatcher [employer] EDVeronica Alejandro RN RN ha1 Kris Abrams MD MD sp4 CLAIRE WELSH RN RN dd2 Km Elizondo, CHEMICAL ANALYST-C CHEMICAL ANALYST-Cdr5 Corrections: (The following items were deleted from the chart) 10/06 21:30 21:30 SARS-COV-2 Antigen Rapid+I.LAB.BRZ ordered. EDMS EDMS 21:30 21:30 Influenza Screen (A \T\ B)+BA.LAB.BRZ ordered. EDMS EDMS 21:30 21:30 Chest Pa And Lat (2 Views)+RAD.RAD.BRZ ordered. EDMS EDMS
--- NOTE | 2024-10-06 22:44 | ER ---
Nurse's Notes [facility] Name: Meng Gutierrez Age: 58 yrs Sex: Male : 1965 Arrival Date: 10/06/2024 Time: 21:25 Bed 6 Private MD: Diagnosis: Streptococcal tonsillitis Presentation: 10/06 21:32 Chief complaint: Patient states: COUGH, SORE THROAT, AND BODY ACHES. ha1 21:32 Coronavirus screen: Vaccine status: Patient reports receiving the 2nd dose of the covid ha1 vaccine. Ebola Screen: No symptoms or risks identified at this time. Initial Sepsis Screen: Does the patient meet any 2 criteria? No. Patient's initial sepsis screen is negative. Does the patient have a suspected source of infection? No. Patient's initial sepsis screen is negative. Risk Assessment: Do you want to hurt yourself or someone else? Patient reports no desire to harm self or others. Onset of symptoms was October 06, 2024. 21:32 Method Of Arrival: Ambulatory [facility] 21:32 Acuity: SHO 4 ha1 Triage Assessment: 21:32 General: Appears comfortable, Behavior is calm, cooperative. Pain: Complains of pain in ha1 SORE THROAT Pain does not radiate. Pain currently is 6 out of 10 on a pain scale. Quality of pain is described as burning. Neuro: Level of Consciousness is awake, alert, obeys commands, Oriented to person, place, time, situation. Cardiovascular: Capillary refill < 3 seconds Patient's skin is warm and dry. Respiratory: Airway is patent Respiratory effort is even, unlabored, Respiratory pattern is regular, symmetrical. Respiratory: Reports cough that is non-productive, dry, persistent. GI: No signs and/or symptoms were reported involving the gastrointestinal system. Musculoskeletal: Circulation, motion, and sensation intact. Range of motion: intact in all extremities. Historical: - Allergies: 21:32 No Known Allergies; ha1 - Home Meds: 21:32 losartan 100 mg Oral tablet 1 tab daily [Active]; ha1 - PMHx: 21:32 Hypertension; ha1 - Immunization history:: Adult Immunizations up to date. - Infectious Disease History:: Denies. - Social history:: Smoking status: Patient reports the use of cigarette tobacco products, denies chronic smoking, but will smoke occasionally. Screenin:[facility] Fall Risk Assessment (Adult) History of falling in the last 3 months, ha1 including since admission No falls in past 3 months (0 pts) Confusion or Disorientation No (0 pts) Intoxicated or Sedated No (0 pts) Impaired Gait No (0 pts) Mobility Assist Device Used No (0 pt) Altered Elimination No (0 pt) Score/Fall Risk Level 0 - 2 = Low Risk Oriented to surroundings, Maintained a safe environment, Educated pt \T\ family on fall prevention, incl call for assistance when getting out of bed, Hourly rounding (assess needs \T\ fall precautionary measures) done. Abuse screen: Denies threats or abuse. Denies injuries from another. Nutritional screening: No deficits noted. Tuberculosis screening: No symptoms or risk factors identified. Assessment: 22:14 General: Appears in no apparent distress. uncomfortable, Behavior is calm, cooperative, dd2 appropriate for age. Pain: Complains of pain in THROAT, GENERALIZED BODY Pain does not radiate. Pain currently is 5 out of 10 on a pain scale. Quality of pain is described as burning, aching. Neuro: No deficits noted. Herring Agitation-Sedation Scale (RASS): 0 - Alert and Calm Level of Consciousness is awake, alert, obeys commands, Oriented to person, place, time, situation, Appropriate for age. Cardiovascular: No deficits noted. Patient's skin is warm and dry. Respiratory: Reports cough that is non-productive, Airway is patent Respiratory effort is even, unlabored, Respiratory pattern is regular, symmetrical, Breath sounds are clear bilaterally. GI: No deficits noted. No signs and/or symptoms were reported involving the gastrointestinal system. Abdomen is non-distended. : No deficits noted. No signs and/or symptoms were reported regarding the genitourinary system. EENT: Throat is reddened Reports pain when swallowing. Derm: No deficits noted. No signs and/or symptoms reported regarding the dermatologic system. Musculoskeletal: No deficits noted. No signs and/or symptoms reported regarding the musculoskeletal system. Circulation, motion, and sensation intact. Range of motion: intact in all extremities. Vital Signs: 21:32 BP 137 / 80; Pulse 76; Resp 18 S; Temp 98.2(O); Pulse Ox 97% on R/A; Weight 77.11 kg; ha1 Height 5 ft. 8 in. ; 22:57 BP 126 / 83; Pulse 79; Resp 16; Temp 98.4; Pulse Ox 98% on R/A; dd2 21:32 Body Mass Index 25.85 (77.11 kg, 172.72 cm) ha1 Zulma Coma Score: 22:14 Eye Response: spontaneous(4). Motor Response: obeys commands(6). Verbal Response: dd2 oriented(5). Total: 15. ED Course: 21:26 Patient arrived in ED. jj6 21:29 Km Elizondo FNP-C is PHCP. dr5 21:29 Kris Abrams MD is Attending Physician. dr5 21:40 SARS RAPID Sent. vk 21:40 Influenza Screen (a \T\ B) Sent. vk 21:42 Triage completed. ha1 21:46 Flu and/or RSV swab sent to lab. Strep swab sent to lab. vk 22:06 CLAIRE WELSH, RN is Primary Nurse. dd2 22:14 No provider procedures requiring assistance completed. dd2 22:14 Patient maintains SpO2 saturation greater than 95% on room air. dd2 22:14 Patient has correct armband on for positive identification. Bed in low position. Call dd2 light in reach. Client placed on continuous cardiac and pulse oximetry monitoring. NIBP monitoring applied. Door closed. Noise minimized. Warm blanket given. Pillow given. Verbal reassurance given. 22:19 Chest Pa And Lat (2 Views) XRAY In Process Unspecified. EDMS 22:57 Patient did not have IV access during this emergency room visit. dd2 22:57 Provided Education on: D/C EDUCATION. dd2 23:00 Arm band placed on right wrist. dd2 Administered Medications: 22:54 Drug: Amoxicillin PO 500 mg PO once Route: PO; dd2 23:00 Follow up: Response: Medication administered at discharge. dd2 Medication: 22:14 VIS not applicable for this client. dd2 Outcome: 22:44 Discharge ordered by . dr5 22:57 Discharged to home ambulatory, dd2 22:57 Condition: stable 22:57 Discharge instructions given to patient, Instructed on discharge instructions, follow up and referral plans. medication usage, Demonstrated understanding of instructions, follow-up care, medications, Prescriptions given X 2, 23:02 Patient left the ED. dd2 Signatures: Dispatcher [employer] EDIA Catrachita Muro6 Veronica Goode, RN RN ha1 Yoli Ann DIANA, RN RN dd2 Mikhail, Km, ASSISTANT CHIEF ENGINEER-C ASSISTANT CHIEF ENGINEER-Cdr5
[2024-10-06] MEDS ORDERED: AMOXICILLIN TRIHYDR 250 MG CAP ONE (22:48)
[2024-10-06 23:08] VITALS: BP 126/83; TEMP 98.4; O2SAT 98
== END 2024-10-06 23:02 | disposition home or self-care (01) ==
LOC: ER 21:25
DX: J03.00 Acute streptococcal tonsillitis, unspecified (principal); Z11.52 Encounter for screening for COVID-19; I10 Essential (primary) hypertension; F17.210 Nicotine dependence, cigarettes, uncomplicated
CPT/HCPCS: 36415; 71046; 87081; 87804; 87811; 99284